=== PATIENT | female | born 1955 | race Caucasian/White ===

== ENCOUNTER 2018-03-05 11:53 | Emergency (ER) | payer OTHER ==
[~2018-03-05] VITALS: Ht 162.6 cm; Wt 81.2 kg
[~2018-03-05 11:53] MED LIST: AVALIDE 150-12.1 TA1 PO; KETO10TA2 PO; KLONOPIN0.125 MG/T PO; METOPROLOL SUCC25 MG PO; ORPH100T PO
[2018-03-05] MEDS ORDERED: SYNTHROID75 MCG (12:28)
[2018-03-05] MEDS ORDERED: HYDRALAZINE HCL50 MG (12:29)
[2018-03-05] MEDS ORDERED: MUCINEX DM ER1 EAC1 PO (18:26)
[2018-03-05] MEDS ORDERED: SYMBICORT 16010.2 GM IH (18:26)
[2018-03-05] MEDS ORDERED: MEDROLPACK PO (18:26)
[2018-03-05] MEDS ORDERED: TESSALON PERLE100 M1 PO (18:26)
[2018-03-05] MEDS ORDERED: IBUPROFEN600 MG PO (18:26)
[2018-03-05] MEDS ORDERED: CEFDINIR300 MG PO (18:26)
== END 2018-03-05 18:39 | disposition home or self-care (01) ==
LOC: ER 11:53
DX: J06.9 Acute upper respiratory infection, unspecified (principal); J11.1 Influenza due to unidentified influenza virus with other respiratory manifestations

== ENCOUNTER 2018-04-10 15:58 | Emergency (ER) | payer OTHER ==
[~2018-04-10] VITALS: Ht 162.6 cm; Wt 79.4 kg
[~2018-04-10 15:58] MED LIST changes: +CEFDINIR300 MG PO; +HYDRALAZINE HCL50 MG; +IBUPROFEN600 MG PO; +MEDROLPACK PO; +MUCINEX DM ER1 EAC1 PO; +SYMBICORT 16010.2 GM IH; +SYNTHROID75 MCG; +TESSALON PERLE100 M1 PO
[2018-04-10] MEDS ORDERED: TOPROL XL100 M1 (16:22)
[2018-04-10] MEDS ORDERED: SYNTHROID75 MCG (16:23)
[2018-04-10] MEDS ORDERED: WELLBUTRIN XL300 MG (16:23)
[2018-04-10] MEDS ORDERED: CLONAZEPAM0.5 M1 (16:23)
[2018-04-10] MEDS ORDERED: HYDRALAZINE HCL25 MG (16:23)
[2018-04-10] MEDS ORDERED: SEROQUEL50 MG (16:24)
[2018-04-10] MEDS ORDERED: RESTORIL30 M1 (16:24)
== END 2018-04-10 19:14 | disposition home or self-care (01) ==
LOC: ER 15:58
DX: M54.2 Cervicalgia (principal); R51 Headache

== ENCOUNTER 2019-01-01 14:53 | Emergency (ER) | payer OTHER ==
[~2019-01-01] VITALS: Ht 160 cm; Wt 79.4 kg
[~2019-01-01 14:53] MED LIST changes: +CLONAZEPAM0.5 M1; +HYDRALAZINE HCL25 MG; +RESTORIL30 M1; +SEROQUEL50 MG; +TOPROL XL100 M1; +WELLBUTRIN XL300 MG
== END 2019-01-01 15:49 | disposition home or self-care (01) ==
LOC: ER 14:53
DX: M54.5 Low back pain (principal)

== ENCOUNTER 2021-09-29 11:53 | Emergency (ER) | payer OTHER ==
[~2021-09-29] VITALS: Ht 160 cm; Wt 78.0 kg
[2021-09-29] MEDS ORDERED: HYDRALAZINE HCL50 MG (12:37)
[2021-09-29] MEDS ORDERED: SEROQUEL25 MG (12:38)
== END 2021-09-29 17:07 ==
LOC: ER 11:53
DX: K29.70 Gastritis, unspecified, without bleeding (principal); R10.13 Epigastric pain; Z88.2 Allergy status to sulfonamides; E03.9 Hypothyroidism, unspecified; I10 Essential (primary) hypertension; K44.9 Diaphragmatic hernia without obstruction or gangrene; F32.A Depression, unspecified; D69.6 Thrombocytopenia, unspecified

== ENCOUNTER 2022-03-03 14:29 | Inpatient (IN) | payer OTHER ==
[~2022-03-03] VITALS: Ht 160 cm; Wt 77.1 kg
[~2022-03-03 14:29] MED LIST changes: +SEROQUEL25 MG
--- NOTE | 2022-03-03 15:45 | NUR ---
PTE REFIERE TENER DOLOR DE FLANCO GUILLE DESDE HACE 2 SEMANAS. PTE VERBALIZA TENER NAUSEAS, DIAHREAS. PTE SE OBSERVA A/O X3.
--- NOTE | 2022-03-03 19:14 | NUR ---
FEMINA ALERTA Y ORIENTADA X3 EVALUADA POR DR FANNY STEELIEN [place] [facility]. SE EDUCA SOBRE PROCEDIMIENTO Y SE COLECTAN MUESTRAS DE CLARISSE BAJO MEDIDAS ASEPTICAS.
--- NOTE | 2022-03-04 07:08 | NUR ---
SE RECIBE PTE FEMENIA DE 66 ANOS ALERTA Y ORIENTADA X3 QUIEN AL MOMRNTO NO REFIER EDOLOR. PTE PEND A CONSULTA CON DR QUEEN
[2022-03-05] MEDS ORDERED: RESTORIL15 MG (15:28)
[2022-03-05] MEDS ORDERED: HYDRALAZINE HCL50 MG (15:28)
[2022-03-05] MEDS ORDERED: FENOFIBRIC ACI135 MG (15:29)
[2022-03-05] MEDS ORDERED: IBANDRONATE SO150 MG (15:29)
[2022-03-05] MEDS ORDERED: LEVOCETIRIZINE D5 MG (15:29)
[2022-03-05] MEDS ORDERED: DOXAZOSIN MESYLA4 MG (15:29)
== END 2022-03-07 22:22 | disposition home or self-care (01) | DRG 418 ==
LOC: ER 14:29 → SURH 03-04 13:50 → SURG 03-04 13:50 → SEC-K 03-04 13:50 → SURG 03-04 15:06 → SURH 03-04 17:28
PROVIDERS: Surgery; ADMIT Internal Medicine; ATTEND Internal Medicine
PROC: BW21ZZZ Computerized Tomography (CT Scan) of Abdomen and Pelvis (ICD-10-PCS; 2022-03-03)
PROC: BF37ZZZ Magnetic Resonance Imaging (MRI) of Pancreas (ICD-10-PCS; 2022-03-04)
PROC: BF13YZZ Fluoroscopy of Gallbladder and Bile Ducts using Other Contrast (ICD-10-PCS; 2022-03-06)
PROC: 0FT44ZZ Resection of Gallbladder, Percutaneous Endoscopic Approach (ICD-10-PCS; principal; 2022-03-06 12:30)
DX: K80.70 Calculus of gallbladder and bile duct without cholecystitis without obstruction (principal); K80.10 Calculus of gallbladder with chronic cholecystitis without obstruction; Z20.822 Contact with and (suspected) exposure to COVID-19

== ENCOUNTER 2023-02-13 10:59 | Emergency (ER) | payer OTHER ==
[~2023-02-13] VITALS: Ht 160 cm; Wt 78.5 kg
[~2023-02-13 10:59] MED LIST changes: +DOXAZOSIN MESYLA4 MG; +FENOFIBRIC ACI135 MG; +IBANDRONATE SO150 MG; +LEVOCETIRIZINE D5 MG; +RESTORIL15 MG
[2023-02-13 12:02] LABS: HEMATOCRIT 41.9 % (36.0-45.00); HEMOGLOBIN 14.2 g/dL (12.0-15.00); MEAN CELL VOLUME 84.6 fL (80.00-100.00); MEAN CORPUSCULAR HEMOGLOBIN 28.6 pg (27.00-32.0); MEAN CORPUSCULAR HGB CONC 33.8 g/dl (32.0-36.0); PLATELET COUNT 274 K/uL (150-450); RED BLOOD COUNT 4.95 M/uL (4.00-6.00); RED CELL DISTRIBUTION WIDTH 14.4 % (11.5-14.5)
[2023-02-13 12:19] LABS: PH,URINE 5.5 (5.0-8.0); URINE APPEARANCE Clear; URINE BILIRRUBIN Negative (NEGATIVE); URINE BLOOD Negative; URINE COLOR Dark Yellow; URINE GLUCOSE Negative (NEGATIVE); URINE LEUKOCYTE Moderate; URINE NITRATE Negative; URINE PROTEIN Negative (NEGATIVE); URINE UROBILINOGEN 0.2 E.U./dl
[2023-02-13 12:23] LABS: URINE BACTERIA 2455.5 uL (0.0-1933); URINE EPITHELIAL CELLS 50.6 uL (0.0-38.8); URINE RBC 5.4 uL (0.0-20.8); URINE WBC 130.1 uL (0.0-23.2)
[2023-02-13 12:52] LABS: CALCIUM 9.2 mg/dL (8.5-10.1); CREATININE SERUM 0.64 mg/dL (0.55-1.02); GFR 93.13; POTASSIUM 3.59 mEq/L (3.5-5.1)
[2023-02-13] MEDS ORDERED: CIPRO500 MG PO (17:01)
== END 2023-02-13 17:09 | disposition home or self-care (01) ==
LOC: ER 11:00
PROVIDERS: Emergency Medicine
DX: N39.0 Urinary tract infection, site not specified (principal); R10.9 Unspecified abdominal pain; Z88.2 Allergy status to sulfonamides; F32.89 Other specified depressive episodes; E03.9 Hypothyroidism, unspecified; I10 Essential (primary) hypertension; K57.30 Diverticulosis of large intestine without perforation or abscess without bleeding
CPT/HCPCS: 36415; 74177; 96365; 99284; J0696; Q9965

== ENCOUNTER 2023-05-04 07:43 | Emergency (ER) | payer OTHER ==
[~2023-05-04] VITALS: Ht 160 cm; Wt 74.8 kg
[~2023-05-04 07:43] MED LIST changes: +CIPRO500 MG PO
[2023-05-04] MEDS ORDERED: APRESOLINE 10MG10 MG PO (07:55)
[2023-05-04] MEDS ORDERED: CARDURA1 MG PO (07:58)
[2023-05-04] MEDS ORDERED: DEXAMETHASONE SODIUM PHOSPHATE 4 MG/ML VIAL IM STA (08:33)
[2023-05-04] MEDS ORDERED: KETOROLAC TROMETHAMINE 30 MG VIAL IM STA (08:33)
[2023-05-04] MEDS ORDERED: ORPHENADRINE CITRATE 30 MG/ML AMPUL IM STA (10:00)
== END 2023-05-04 10:14 | disposition home or self-care (01) ==
LOC: ER 07:43
DX: M54.31 Sciatica, right side (principal); Z88.2 Allergy status to sulfonamides
CPT/HCPCS: 96372; 99283; J1100; J1885; J2360

== ENCOUNTER 2023-10-24 11:08 | Emergency (ER) | payer OTHER ==
[~2023-10-24] VITALS: Ht 160 cm; Wt 72.6 kg
[~2023-10-24 11:08] MED LIST changes: +APRESOLINE 10MG10 MG PO; +CARDURA1 MG PO
[2023-10-24 14:30] LABS: HEMATOCRIT 45.5 % (36.0-45.00); HEMOGLOBIN 15.7 g/dL (12.0-15.00); MEAN CELL VOLUME 84.2 fL (80.00-100.00); MEAN CORPUSCULAR HGB CONC 34.4 g/dl (32.0-36.0); PLATELET COUNT 220 K/uL (150-450); RED BLOOD COUNT 5.41 M/uL (4.00-6.00); RED CELL DISTRIBUTION WIDTH 14.6 % (11.5-14.5)
[2023-10-24 14:58] LABS: URINE APPEARANCE Clear; URINE BILIRRUBIN Negative (NEGATIVE); URINE BLOOD Negative; URINE COLOR Yellow; URINE GLUCOSE Negative (NEGATIVE); URINE KETONE Negative (NEGATIVE); URINE LEUKOCYTE Negative; URINE NITRATE Negative; URINE PROTEIN Negative (NEGATIVE); URINE UROBILINOGEN 0.2 E.U./dl
[2023-10-24 15:02] LABS: URINE BACTERIA 672.7 uL (0.0-1933); URINE EPITHELIAL CELLS 46.3 uL (0.0-38.8); URINE RBC 4.5 uL (0.0-20.8)
[2023-10-24 15:35] LABS: URINE WBC 0.9 uL (0.0-23.2)
[2023-10-24 15:43] LABS: CALCIUM 9.6 mg/dL (8.5-10.1); CREATININE SERUM 0.65 mg/dL (0.55-1.02); GFR 91.19; POTASSIUM 3.52 mEq/L (3.5-5.1)
[2023-10-24] MEDS ORDERED: KETOROLAC TROMETHAMINE 60 MG VIAL IM ONE ×2 (17:53→18:00)
== END 2023-10-24 20:03 | disposition home or self-care (01) ==
LOC: ER 11:09
PROVIDERS: General Practice
DX: K57.90 Diverticulosis of intestine, part unspecified, without perforation or abscess without bleeding (principal); R10.2 Pelvic and perineal pain; I10 Essential (primary) hypertension; Z88.2 Allergy status to sulfonamides
CPT/HCPCS: 36415; 74176; 96372; 99284; J1885

== ENCOUNTER 2024-07-15 05:11 | Day surgery (SDC) | payer OTHER ==
[2024-07-09 13:43] VITALS: BP 140/90
[2024-07-09 15:03] LABS: HEMATOCRIT 43.5 % (36.0-45.00); HEMOGLOBIN 14.2 g/dL (12.0-15.00); MEAN CELL VOLUME 85.9 fL (80.00-100.00); MEAN CORPUSCULAR HGB CONC 32.5 g/dl (32.0-36.0); PLATELET COUNT 227 K/uL (150-450); RED BLOOD COUNT 5.06 M/uL (4.00-6.00)
[2024-07-09 15:19] LABS: PROTHROMBIN TIME 10.9 SECONDS (9.0-11.5)
[2024-07-09 15:36] LABS: ALBUMIN 3.9 gm/dL (3.4-5.0); BILIRUBIN TOTAL 0.26 mg/dL (0.3-1.2); CALCIUM 9.6 mg/dL (8.5-10.1); CREATININE SERUM 0.58 mg/dL (0.55-1.02); GFR 103.69; GLOBULINA 3.4 G/DL (2.4-3.5); POTASSIUM 4.47 mEq/L (3.5-5.1); TOTAL PROTEIN 7.3 gm/dL (6.4-8.2)
[~2024-07-15] VITALS: Ht 160 cm; Wt 72.6 kg
[2024-07-15] MEDS ORDERED: ONDANSETRON HCL 2 MG/ML VIAL IV ONE (09:15)
[2024-07-15] MEDS ORDERED: MIDAZOLAM HCL 2 MG/2 ML VIAL IV ONE (09:15)
[2024-07-15] MEDS ORDERED: DIPHENHYDRAMINE HCL 50 MG/ML VIAL 1ML IV ONE (09:15)
[2024-07-15] MEDS ORDERED: fentaNYL CITRATE 50 MCG/ML AMPUL IV PUSH ONE (09:15)
== END 2024-07-15 10:10 | disposition home or self-care (01) ==
LOC: AMB-ENDOS 05:11 → CIR.AMB 13:45
PROVIDERS: ATTEND Internal Medicine
DX: D12.2 Benign neoplasm of ascending colon (principal); K57.30 Diverticulosis of large intestine without perforation or abscess without bleeding; Z88.2 Allergy status to sulfonamides